=== PATIENT | male | born 1955 | race Caucasian/White ===

== ENCOUNTER 2020-03-02 12:06 | Emergency (ER) | payer MEDICAID ==
[2020-03-02] MEDS ORDERED: Sodium Chloride 0.9% 10 ML Syringe FLUSH PRN (12:18)
[2020-03-02] MEDS ORDERED: Enoxaparin 80 MG/0.8 ML Syringe SUBCUT ONE (13:38)
--- NOTE | 2020-03-02 14:27 | EDM.PDOC ---
ED HPI GENERAL MEDICAL PROBLEM - General Chief Complaint: Lower Extremity Injury/Pain Time Seen by Provider: 03/02/20 12:10 Source of Information: Reports: Patient History Limitations: Reports: No Limitations - History of Present Illness INITIAL COMMENTS - FREE TEXT/NARRATIVE: Patient presented to the ED from the [facility] because of worsening dyspnea. He started to have dyspnea 6 weeks ago and leg edema 4 weeks ahich are progressively getting worse. He denies having any chest pain, nausea, vomiting, or diaphoresis. There is no cough/ cold symptoms. He was seen in the clinic 2 days ago and was started on Lasix 20 mg QAM and had and echo yesterday which showed a LVEF of 10%. He had Chest CT today which showed bilateral PE and a doppler US RLE revealed a DVT. Right Lower Leg Pain Score (Numeric/FACES): 5 - Related Data Allergies Allergy/AdvReac Type Severity Reaction Status Date / Time No Known Allergies Allergy Verified 03/02/20 10:16 Home Meds: Home Meds Aspirin 325 mg PO DAILY 03/02/20 [History] Canagliflozin [Invokana] 100 mg PO ACBREAKFAST 03/02/20 [History] Enoxaparin [Lovenox] 80 mg SQ BID 03/02/20 [History] Furosemide 20 mg PO DAILY 03/02/20 [History] atorvaSTATin [Lipitor] 10 mg PO BEDTIME 03/02/20 [History] lisinopriL [Lisinopril] 5 mg PO BEDTIME 03/02/20 [History] metFORMIN [Glucophage XR] 500 mg PO ACBREAKFAST 03/02/20 [History] metFORMIN [Glucophage] 500 mg PO BID 03/02/20 [History] Past Medical History - Infectious Disease History Infectious Disease History: Reports: Chicken Pox Social & Family History - Tobacco Use Tobacco Use Status *Q: Never Tobacco User - Caffeine Use Caffeine Use: Reports: Soda - Recreational Drug Use Recreational Drug Use: No Review of Systems - Review of Systems Review Of Systems: See Below Constitutional: Reports: Weakness Eyes: Reports: No Symptoms Ears: Reports: No Symptoms Nose: Reports: No Symptoms Mouth/Throat: Reports: No Symptoms Respiratory: Reports: Shortness of Breath Cardiovascular: Reports: Edema GI/Abdominal: Reports: No Symptoms, Abdominal Pain, Diarrhea Musculoskeletal: Reports: No Symptoms Skin: Reports: No Symptoms Neurological: Reports: No Symptoms Psychiatric: Reports: No Symptoms ED EXAM, GENERAL - Physical Exam Exam: See Below Exam Limited By: No Limitations General Appearance: Alert, No Apparent Distress Eye Exam: Bilateral Eye: PERRL Ears: Normal External Exam, Normal Canal Head: Atraumatic, Normocephalic Neck: Normal Inspection, Supple, Non-Tender Respiratory/Chest: No Respiratory Distress, Lungs Clear, Normal Breath Sounds Cardiovascular: Normal Peripheral Pulses, Regular Rate, Rhythm, No Edema GI/Abdominal: Normal Bowel Sounds, Soft, Non-Tender, No Organomegaly Back Exam: Normal Inspection, Full Range of Motion Extremities: Pedal Edema Neurological: Alert, Oriented, CN II-XII Intact Psychiatric: Normal Affect Course - Vital Signs Text/Narrative:: Labs/EKG/Chest CT/DopplerUS RLE result was discussed with patient Lovenox 80 mg SC Lasix 40 mg IV x1 Case discussed with Dr Crocker Last Recorded V/S: Last Vital Signs Temp 35.6 C L 03/02/20 14:00 Pulse 98 03/02/20 14:00 Resp 16 03/02/20 14:00 BP 114/87 03/02/20 14:00 Pulse Ox 99 03/02/20 14:00 - Orders/Labs/Meds Orders: Active Orders 24 hr Category Date Time Status EKG Documentation Completion [RC] ASDIRECTED Care 03/02/20 12:20 Active Chest 1V Frontal [CR] Stat Exams 03/02/20 12:19 Stop Req VL Duplex Lwr Ext Veins Ltd Rt [US] Stat Exams 03/02/20 13:06 Taken Sodium Chloride 0.9% [Saline Flush] Med 03/02/20 12:18 Active 10 ml FLUSH ASDIRECTED PRN Saline Lock Insert [OM.PC] Routine Oth 03/02/20 12:18 Ordered EKG 12 Lead [EK] Routine Ther 03/02/20 12:19 Ordered Medication Orders Sodium Chloride (Saline Flush) 10 ml FLUSH ASDIRECTED PRN PRN Reason: Keep Vein Open Labs: Laboratory Tests 03/02/20 03/02/20 03/02/20 Range/Units 12:10 12:10 12:10 WBC 7.9 (4.5-12.0) X10-3/uL RBC 6.08 H (4.30-5.75) x10(6)uL Hgb 17.5 (13.5-17.8) g/dL Hct 53.8 H (30.0-51.3) % MCV 88.5 (80-96) fL MCH 28.7 (27.7-33.6) pg MCHC 32.4 (32.2-35.4) g/dL RDW 13.2 (11.5-15.5) % Plt Count 201 (125-369) X10(3)uL MPV 9.0 (7.4-10.4) fL Neut % (Auto) 44.3 L (46-82) % Lymph % (Auto) 46.9 H (13-37) % [place] % (Auto) 7.2 (4-12) % Eos % (Auto) 1 (1.0-5.0) % Baso % (Auto) 1 (0-2) % Neut # (Auto) 3.5 (1.6-8.3) # Lymph # (Auto) 3.6 (0.6-5.0) # [place] # (Auto) 0.6 (0.0-1.3) # Eos # (Auto) 0.1 (0.0-0.8) # Baso # (Auto) 0.1 (0.0-0.2) # PT 14.1 H (9.0-11.1) sec INR 1.33 H (1.00-1.24) APTT 27.8 (24.4-33.2) SECONDS Sodium 139 (135-145) mmol/L Potassium 4.5 (3.5-5.3) mmol/L Chloride 100 (100-110) mmol/L Carbon Dioxide 31 (21-32) mmol/L BUN 24 H (7-18) mg/dL Creatinine 1.3 (0.70-1.30) mg/dL Est Cr Clr Drug Dosing TNP Estimated GFR (MDRD) 56 L (>60) BUN/Creatinine Ratio 18.5 (9-20) Glucose 202 H (80-116) mg/dL Calcium 9.1 (8.6-10.2) mg/dL Total Bilirubin 1.4 H (0.1-1.3) mg/dL AST 24 (5-25) IU/L ALT 27 D (12-36) U/L Alkaline Phosphatase 53 L (56-112) IU/L Troponin I (4.0-60.3) pg/mL NT-Pro-B Natriuret Pep (<=125) pg/mL Total Protein 6.8 (6.0-8.0) g/dL Albumin 3.3 (3.2-4.6) g/dL Globulin 3.5 g/dL Albumin/Globulin Ratio 0.9 SARS-CoV-2 RNA (JET) (NEGATIVE) 03/02/20 03/02/20 Range/Units 12:10 13:05 WBC (4.5-12.0) X10-3/uL RBC (4.30-5.75) x10(6)uL Hgb (13.5-17.8) g/dL Hct (30.0-51.3) % MCV (80-96) fL MCH (27.7-33.6) pg MCHC (32.2-35.4) g/dL RDW (11.5-15.5) % Plt Count (125-369) X10(3)uL MPV (7.4-10.4) fL Neut % (Auto) (46-82) % Lymph % (Auto) (13-37) % [place] % (Auto) (4-12) % Eos % (Auto) (1.0-5.0) % Baso % (Auto) (0-2) % Neut # (Auto) (1.6-8.3) # Lymph # (Auto) (0.6-5.0) # [place] # (Auto) (0.0-1.3) # Eos # (Auto) (0.0-0.8) # Baso # (Auto) (0.0-0.2) # PT (9.0-11.1) sec INR (1.00-1.24) APTT (24.4-33.2) SECONDS Sodium (135-145) mmol/L Potassium (3.5-5.3) mmol/L Chloride (100-110) mmol/L Carbon Dioxide (21-32) mmol/L BUN (7-18) mg/dL Creatinine (0.70-1.30) mg/dL Est Cr Clr Drug Dosing Estimated GFR (MDRD) (>60) BUN/Creatinine Ratio (9-20) Glucose (80-116) mg/dL Calcium (8.6-10.2) mg/dL Total Bilirubin (0.1-1.3) mg/dL AST (5-25) IU/L ALT (12-36) U/L Alkaline Phosphatase (56-112) IU/L Troponin I 19.8 (4.0-60.3) pg/mL NT-Pro-B Natriuret Pep > 82743 H* (<=125) pg/mL Total Protein (6.0-8.0) g/dL Albumin (3.2-4.6) g/dL Globulin g/dL Albumin/Globulin Ratio SARS-CoV-2 RNA (JET) Negative (NEGATIVE) Meds: Medications Generic Name Dose Route Start Last Admin Trade Name Freq PRN Reason Stop Dose Admin Sodium Chloride 10 ml 03/02/20 12:18 Saline Flush FLUSH ASDIRECTED PRN Keep Vein Open Discontinued Medications Generic Name Dose Route Start Last Admin Trade Name Freq PRN Reason Stop Dose Admin Enoxaparin Sodium 80 mg 03/02/20 13:38 03/02/20 13:50 Lovenox SUBCUT 03/02/20 13:39 80 mg ONETIME ONE Administration Departure - Departure Time of Disposition: 14:30 Disposition: DC/Tfer to Acute Hospital 02 Condition: Good Clinical Impression: CHF (congestive heart failure), Pulmonary embolism, DVT (deep venous thrombosis) - Discharge Information Referrals: Levar Whittington PA [Primary Care Provider] - Forms: ED Department Discharge Sepsis Event Note (ED) - Evaluation Sepsis Screening Result: No Definite Risk - Focused Exam Vital Signs: Vital Signs Temp Pulse Resp BP Pulse Ox 03/02/20 14:00 35.6 C L 98 16 114/87 99 03/02/20 13:45 35.6 C L 98 16 135/120 H 99 03/02/20 13:30 35.6 C L 98 16 117/92 H 99 03/02/20 13:15 35.6 C L 99 16 125/96 H 99 03/02/20 13:00 35.5 C L 98 16 120/97 H 99 03/02/20 12:06 35.3 C L 98 16 123/93 H 99 - My Orders Last 24 Hours: My Active Orders 03/02/20 12:18 Sodium Chloride 0.9% [Saline Flush] 10 ml FLUSH ASDIRECTED PRN Saline Lock Insert [OM.PC] Routine 03/02/20 12:19 Chest 1V Frontal [CR] Stat EKG 12 Lead [EK] Routine 03/02/20 12:20 EKG Documentation Completion [RC] ASDIRECTED 03/02/20 13:06 VL Duplex Lwr Ext Veins Ltd Rt [US] Stat - Assessment/Plan Last 24 Hours: My Active Orders 03/02/20 12:18 Sodium Chloride 0.9% [Saline Flush] 10 ml FLUSH ASDIRECTED PRN Saline Lock Insert [OM.PC] Routine 03/02/20 12:19 Chest 1V Frontal [CR] Stat EKG 12 Lead [EK] Routine 03/02/20 12:20 EKG Documentation Completion [RC] ASDIRECTED 03/02/20 13:06 VL Duplex Lwr Ext Veins Ltd Rt [US] Stat
--- NOTE | 2020-03-03 07:48 | US ---
INDICATION: Painful right leg, question DVT. DUPLEX ULTRASOUND RIGHT LOWER EXTREMITY VEINS: Utilizing 2-D real-time duplex Doppler spectral analysis and color flow imaging, examination of the right lower extremity veins revealed the proximal greater saphenous vein to be patent and compressible. The deep venous structures, however, are not compressible and showed no significant flow except at the posterior tibial above the ankle which did show thrombosis, but showed partial flow. The peroneal vein was not visualized. The common femoral vein and deep femoral vein, as well as popliteal vein were all filled with echogenic material and compressible and showing no significant flow. IMPRESSION: Extensive deep venous thrombosis of the right lower extremity. MTDD
== END 2020-03-02 17:15 ==
LOC: FB.ED 12:06
DX: I50.9 Heart failure, unspecified (principal); I26.99 Other pulmonary embolism without acute cor pulmonale; I82.401 Acute embolism and thrombosis of unspecified deep veins of right lower extremity; Z79.82 Long term (current) use of aspirin; Z79.01 Long term (current) use of anticoagulants; Z79.899 Other long term (current) drug therapy; Z20.828 Contact with and (suspected) exposure to other viral communicable diseases
CPT/HCPCS: 36415; 80053; 83880; 84484; 85025; 85610; 85730; 87635; 93005; 93971; 96372; 99285; J1650; U0002

== ENCOUNTER 2022-05-05 11:54 | Emergency (ER) | payer MEDICARE, OTHER ==
[2022-05-05] MEDS ORDERED: Sodium Chloride 0.9% 1,000 ML IV SCH (12:30)
[2022-05-05 12:36] LABS: ESTIMATED GFR 51 mL/min (>60)
[2022-05-05] MEDS ORDERED: 50% Dextrose in Water 50 ML Syringe IVPUSH PRN (12:46)
[2022-05-05] MEDS ORDERED: Insulin Regular, Human 100 Units/ML 3 ML Vial SUBCUT ONE (12:46)
[2022-05-05] MEDS ORDERED: Glucagon,Human Recombinant 1 MG Vial IM PRN (12:46)
== END 2022-05-05 14:40 | disposition home or self-care (01) ==
LOC: FB.ED 11:54
DX: E86.0 Dehydration (principal); U09.9 Post COVID-19 condition, unspecified; I11.0 Hypertensive heart disease with heart failure; I50.9 Heart failure, unspecified; R79.1 Abnormal coagulation profile; E78.00 Pure hypercholesterolemia, unspecified; E11.9 Type 2 diabetes mellitus without complications; Z79.01 Long term (current) use of anticoagulants; Z79.899 Other long term (current) drug therapy; Z79.82 Long term (current) use of aspirin
CPT/HCPCS: 36415; 71045; 80053; 82947; 83880; 84484; 85025; 85610; 85730; 93005; 96360; 96361; 99285; J1815; J7030

== ENCOUNTER 2022-09-26 07:50 | Emergency (ER) | payer MEDICARE, OTHER | END 2022-09-26 10:20 | disposition home or self-care (01) | LOC: FB.ED 07:50 | DX: H57.13 Ocular pain, bilateral (principal); H53.9 Unspecified visual disturbance; I11.0 Hypertensive heart disease with heart failure; I50.9 Heart failure, unspecified; E78.00 Pure hypercholesterolemia, unspecified; E11.9 Type 2 diabetes mellitus without complications; Z86.16 Personal history of COVID-19; Z79.82 Long term (current) use of aspirin; Z79.4 Long term (current) use of insulin; Z79.01 Long term (current) use of anticoagulants | CPT/HCPCS: 99283 ==